=== PATIENT | female | born 1995 ===

== ENCOUNTER 2018-04-14 20:47 | Emergency (ER) | payer SELFPAY ==
[~2018-04-14] VITALS: Ht 165.1 cm; Wt 58.0 kg
[2018-04-14 20:52] VITALS: BP 137/86
== END 2018-04-14 21:16 | disposition left against medical advice (07) ==
LOC: ED 21:10
DX: T65.891A Toxic effect of other specified substances, accidental (unintentional), initial encounter (principal); L24.5 Irritant contact dermatitis due to other chemical products; Y92.89 Other specified places as the place of occurrence of the external cause
CPT/HCPCS: 99283